=== PATIENT | female | born 1995 | race Caucasian/White ===

== ENCOUNTER 2023-05-25 23:24 | Emergency (ER) | payer MEDICAID ==
[2023-05-26 00:29] VITALS: TEMP 97.5
[2023-05-26] MEDS ORDERED: Sodium Chloride 0.9% 1000 ML 1,000 ML IV STA (00:30)
[2023-05-26] MEDS ORDERED: Sodium Chloride 0.9% 1000 ML 1,000 ML ONE (00:45)
[2023-05-26 00:47] LABS: Absolute Neutrophil Ct (ANC) 3.06 x10^3/uL (1.4-6.9); BASOPHIL % 0.6 % (0.0-0.4); Basophil (Absolute #) 0.04 x10^3/uL (0-0.4); Eosinophil % 2.9 % (0.00-5.0); Eosinophil (Absolute #) 0.19 x10^3/uL (0-0.5); Hematocrit 40.8 % (35-47); Hemoglobin 13.5 g/dL (12.0-16.0); IMMATURE GRAN # 0.02 x10^3u/L (0.00-0.03); IMMATURE GRAN % 0.3 % (0.00-0.4); Lymphocyte (Absolute #) 2.85 x10^3/uL (1.0-4.6); Lymphocytes % 43.4 % (24.0-44.0); Mean Cell Volume 94.2 fL (78-100); Mean Corpuscular Hemoglobin 31.2 pg (26-32); Mean Corpuscular Hgb Concent. 33.1 g/dL (32-36); Mean Platelet Volume 9.6 fL (7.5-11.0); Monocytes % 6.1 % (0.0-12.0); Neutrophil % 46.7 % (36.0-66.0); Platelet Count 242 x10^3/uL (150-450); Red Blood Count 4.33 x10^6/uL (4.1-5.4); Red Cell Distribution Width 12.8 % (11.5-14.0); White Blood Count 6.6 x10^3/uL (4.0-10.5)
[2023-05-26 01:08] LABS: Appearance Turbid (Clear); Bacteria Many /HPF (None Seen); Bilirubin Negative (Negative); Blood Negative (Negative); Epithelial Cells Many /HPF (None Seen); Glucose, Urine Negative (Negative); Hyaline Casts NONE SEEN /LPF (0-2); Ketones Trace (Negative); Leukocyte Esterase Trace (Negative); Nitrite Negative (Negative); Ph 5.5 (4.6-8.0); Protein,Urine Dip 30 (Negative); Specific Gravity >=1.030 (1.005-1.030)
[2023-05-26 01:09] LABS: HCG URINE TEST NEGATIVE (NEGATIVE)
[2023-05-26 01:09] LABS: ADD URINE CULTURE? YES (NO)
[2023-05-26 01:16] LABS: ALBUMIN 3.6 g/dL (3.5-5.0); ALKALINE PHOSPHATASE 65 U/L (38-126); ANION GAP 10.1 MEQ/L (5-15); BLOOD UREA NITROGEN 14 mg/dL (7-17); CHLORIDE 107 mmol/L (98-107); Calcium 8.5 mg/dL (8.4-10.2); Carbon Dioxide 26 mmol/L (22-30); Creatinine 1 0.67 mg/dL (0.52-1.04); EST GLOMERULAR FILTRATION RATE > 60.0 ML/MIN; Glucose 121 mg/dL (74-106); Potassium 3.7 mmol/L (3.5-5.1); SGOT/AST 22 U/L (14-36); SGPT/ALT 19 U/L (0-35); SODIUM 140 mmol/L (137-145); TROPONIN < 0.012 ng/mL (0.000-0.034); Total Protein 6.3 g/dL (6.3-8.2)
[2023-05-26] MEDS ORDERED: ROCEPHIN 1 Gm-D5w 50 ml Bag** 1 G/50 ML IVPB IV STA (01:16)
[2023-05-26] MEDS ORDERED: ROCEPHIN 1 Gm-D5w 50 ml Bag** 1 G/50 ML IVPB IV ONE (01:17)
--- NOTE | 2023-05-26 01:17 | ERPHSYRPT ---
- History of Present Illness Time Seen by Provider: 05/26/23 01:00 Source: patient Exam Limitations: no limitations Patient Subjective Stated Complaint: pt states that last night while she was laying in bed she started feeling very dizzy and nauseated without vomiting. diz ziness worsens when changing positions. reports vomited one time this morning. denies chino, cp, sob, difficulty breathing, change in appetite, oral intact, urinary or bowel elimination, LOC, or being exposed to heat for prolonged period of time. Triage Nursing Assessment: pt ambulated to room 5 independently with slow steady gait after standing on scales for weight acquisition. urine sample obtained for lab testing. pt is alert and oriented times three, resp even and unlabored, able to speak in complete sentences, able to move all extremities. no edema noted. bilat radial and pedal pulses palpable and regular. heart sounds normal and regular, lung sounds clear bilat anteriorally. pupils 3mm, equal, round, and reactive to light. all extremities with strength, color, sensation, and pulses within normal limits. Physician History: Patient is a 27-year-old female presents to our ED for evaluation of dizziness that started last night while in bed. Patient was somewhat nauseous. Dizziness worse when she moves her head. Symptoms are constant. Patient vomited once this morning. No associated chest pain or shortness of breath. No numbness tingling or weakness. No trauma. No fever. Symptoms are mild to moderate in intensity. No specific worsening or proving factors. Patient is otherwise healthy. She voices no other complaints or concerns at this time. Portions of this note were created with voice recognition technology. There may be grammatical, spelling, punctuation or sound alike errors Timing/Duration: yesterday Severity: moderate Modifying Factors: Improves With: nothing Associated Symptoms: denies symptoms Allergies/Adverse Reactions: ketorolac [From Toradol] Allergy (Intermediate, Verified 05/26/23 00:12) Nausea and Vomiting Hx Tetanus, Diphtheria Vaccination/Date Given: Yes Hx Influenza Vaccination/Date Given: No Hx Pneumococcal Vaccination/Date Given: No Immunizations Up to Date: Yes Travel Risk - International Travel Have you traveled outside of the country in past 3 weeks: No - Coronavirus Screening Are you exhibiting any of the following symptoms?: No Close contact with a COVID-19 positive Pt in past 14-21 Days: No - Vaccine Status Have you recieved a Covid-19 vaccination: No - Review of Systems Constitutional: No Symptoms, No Fever, No Chills Eyes: No Symptoms Ears, Nose, & Throat: No Symptoms Respiratory: No Symptoms, No Cough, No Dyspnea Cardiac: No Symptoms, No Chest Pain, No Edema, No Syncope Abdominal/Gastrointestinal: No Symptoms, No Abdominal Pain, No Nausea, No Vomiting, No Diarrhea Genitourinary Symptoms: No Symptoms, No Dysuria Musculoskeletal: No Symptoms, No Back Pain, No Neck Pain Skin: No Symptoms, No Rash Neurological: No Symptoms, No Dizziness, No Focal Weakness, No Sensory Changes Psychological: No Symptoms Endocrine: No Symptoms Hematologic/Lymphatic: No Symptoms Immunological/Allergic: No Symptoms All Other Systems: Reviewed and Negative - Past Medical History Pertinent Past Medical History: Yes Neurological History: No Pertinent History ENT History: No Pertinent History Cardiac History: Other Respiratory History: Asthma, Other Endocrine Medical History: No Pertinent History Musculoskeletal History: No Pertinent History GI Medical History: No Pertinent History History: No Pertinent History Psycho-Social History: No Pertinent History Female Reproductive Disorders: No Pertinent History Other Medical History: 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 elevated right ventricular systolic pressure. - Past Surgical History Past Surgical History: No Neuro Surgical History: No Pertinent History Cardiac: No Pertinent History Respiratory: No Pertinent History Gastrointestinal: No Pertinent History Genitourinary: No Pertinent History Musculoskeletal: No Pertinent History Female Surgical History: No Pertinent History - Social History Smoking Status: Current every day smoker How long have you smoked: 2016 Exposure to second hand smoke: No Drug Use: none Patient Lives Alone: No - Female History Hx Last Menstrual Period: 05/19/23 Hx Now: No - Nursing Vital Signs Nursing Vital Signs: Initial Vital Signs Temperature 97.5 F 05/26/23 00:14 Pulse Rate 93 H 05/26/23 00:14 Respiratory Rate 16 05/26/23 00:14 Blood Pressure 127/86 05/26/23 00:14 O2 Sat by Pulse Oximetry 99 05/26/23 00:14 Pain Scale Pain Intensity 0 - Physical Exam General Appearance: no apparent distress, alert Eye Exam: PERRL/EOMI, eyes nml inspection Ears, Nose, Throat Exam: normal ENT inspection, TMs normal, pharynx normal, moist mucous membranes Neck Exam: normal inspection, non-tender, supple, full range of motion Respiratory Exam: normal breath sounds, lungs clear, airway intact, No respiratory distress Cardiovascular Exam: regular rate/rhythm, normal heart sounds, normal peripheral pulses Gastrointestinal/Abdomen Exam: soft, normal bowel sounds, No tenderness, No mass Back Exam: normal inspection, normal range of motion, No CVA tenderness, No vertebral tenderness Extremity Exam: normal inspection, normal range of motion, pelvis stable Neurologic Exam: alert, oriented x 3, cooperative, normal mood/affect, nml cerebellar function, nml station & gait, sensation nml, No motor deficits Skin Exam: normal color, warm, dry, No rash Lymphatic Exam: No adenopathy SpO2 Interpretation: normal SpO2: 99 O2 Delivery: Room Air - Course Nursing assessment & vital signs reviewed: Yes EKG Interpreted by Me: RATE (81), Sinus Rhythm, NORMAL AXIS, NORMAL INTERVALS, NORMAL QRS - CT Exams Head CT Interpretation: Tele-radiologist Report (No acute intracranial event) Ordered Tests: Active Orders 24 hr Category Date Time Status AMA [Release AMA] OM.NOW Care 05/26/23 04:39 Ordered Director Advertising STAT Care 05/26/23 00:30 Active EKG-ER Only STAT Care 05/26/23 00:30 Active IV Insertion STAT Care 05/26/23 00:30 Active HEAD WITHOUT CONTRAST [CT] Stat Exams 05/26/23 00:31 Completed CBC W DIFF Stat Lab 05/26/23 00:45 Completed CMP Stat Lab 05/26/23 00:45 Completed CULTURE,URINE Stat Lab 05/26/23 00:10 Received HCG QUALITATIVE, URINE Stat Lab 05/26/23 00:45 Completed NT PRO BNPII Stat Lab 05/26/23 00:45 Completed TROPONIN Q4H Lab 05/26/23 00:45 Completed TROPONIN Q4H Lab 05/26/23 04:30 Ordered TROPONIN Q4H Lab 05/26/23 08:30 Ordered UA W/RFX UR CULTURE Stat Lab 05/26/23 00:10 Completed Medication Summary Discontinued Medications Generic Name Dose Route Start Last Admin Trade Name Freq PRN Reason Stop Dose Admin Sodium Chloride 1,000 mls @ 999 mls/hr 05/26/23 00:30 05/26/23 02:04 Sodium Chloride 0.9% 1000 Ml IV 05/26/23 01:30 Infused .Q1H1M STA Infusion Sodium Chloride Confirm 05/26/23 00:45 Sodium Chloride 0.9% 1000 Ml Administered 05/26/23 00:46 Dose 1,000 mls @ ud .ROUTE .STK-MED ONE Ceftriaxone Sodium/Dextrose 1 g in 50 mls @ 100 mls/hr 05/26/23 01:16 05/26/23 02:04 Rocephin 1 Gm-D5w 50 Ml Bag IV 05/26/23 01:45 Infused STAT STA Infusion Ceftriaxone Sodium/Dextrose Confirm 05/26/23 01:17 Rocephin 1 Gm-D5w 50 Ml Bag Administered 05/26/23 01:18 Dose 1 g in 50 mls @ ud IV .STK-MED ONE Sodium Chloride 500 mls @ 500 mls/hr 05/26/23 01:55 05/26/23 02:34 Sodium Chloride 0.9% 500 Ml IV 05/26/23 02:54 Infused .Q1H ONE Infusion Sodium Chloride Confirm 05/26/23 01:56 Sodium Chloride 0.9% 500 Ml Administered 05/26/23 01:57 Dose 500 mls @ ud IV .STK-MED ONE Lab/Rad Data: Laboratory Result Diagrams 05/26/23 00:45 05/26/23 00:45 Laboratory Results 05/26/23 05/26/23 05/26/23 Range/Units 00:45 00:45 00:45 WBC 6.6 (4.0-10.5) x10^3/uL RBC 4.33 (4.1-5.4) x10^6/uL Hgb 13.5 (12.0-16.0) g/dL Hct 40.8 (35-47) % MCV 94.2 (78-100) fL MCH 31.2 (26-32) pg MCHC 33.1 (32-36) g/dL RDW 12.8 (11.5-14.0) % Plt Count 242 (150-450) x10^3/uL MPV 9.6 (7.5-11.0) fL Gran % 46.7 (36.0-66.0) % Immature Gran % (Auto) 0.3 (0.00-0.4) % Nucleat RBC Rel Count 0.0 (0.00-0.1) % Eos # (Auto) 0.19 (0-0.5) x10^3/uL Immature Gran # (Auto) 0.02 (0.00-0.03) x10^3u/L Absolute Lymphs (auto) 2.85 (1.0-4.6) x10^3/uL Absolute Monos (auto) 0.40 (0.0-1.3) x10^3/uL Absolute Nucleated RBC 0.00 (0.00-0.01) x10^3u/L Lymphocytes % 43.4 (24.0-44.0) % Monocytes % 6.1 (0.0-12.0) % Eosinophils % 2.9 (0.00-5.0) % Basophils % 0.6 (0.0-0.4) % Absolute Granulocytes 3.06 (1.4-6.9) x10^3/uL Basophils # 0.04 (0-0.4) x10^3/uL Sodium 140 (137-145) mmol/L Potassium 3.7 (3.5-5.1) mmol/L Chloride 107 (98-107) mmol/L Carbon Dioxide 26 (22-30) mmol/L Anion Gap 10.1 (5-15) MEQ/L BUN 14 (7-17) mg/dL Creatinine 0.67 (0.52-1.04) mg/dL Estimated GFR > 60.0 ML/MIN Glucose 121 H (74-106) mg/dL Calcium 8.5 (8.4-10.2) mg/dL Total Bilirubin 0.30 (0.2-1.3) mg/dL AST 22 (14-36) U/L ALT 19 (0-35) U/L Alkaline Phosphatase 65 (38-126) U/L Troponin I < 0.012 (0.000-0.034) ng/mL NT-Pro-B Natriuret Pep < 20.0 (<300) pg/mL Serum Total Protein 6.3 (6.3-8.2) g/dL Albumin 3.6 (3.5-5.0) g/dL Urine Color (Yellow) Urine Appearance (Clear) Urine pH (4.6-8.0) Ur Specific [place] (1.005-1.030) Urine Protein (Negative) Urine Glucose (UA) (Negative) mg/dL Urine Ketones (Negative) Urine Blood (Negative) Urine Nitrite (Negative) Urine Bilirubin (Negative) Urine Urobilinogen (0.2) mg/dL Ur Leukocyte Esterase (Negative) U Hyaline Cast (Auto) (0-2) /LPF Urine Microscopic RBC (0-5) /HPF Urine Microscopic WBC (0-5) /HPF Ur Epithelial Cells (None Seen) /HPF Calcium Oxalate Crystal (None Seen) /HPF Urine Bacteria (None Seen) /HPF Urine Culture Reflexed (NO) Urine HCG, Qual (NEGATIVE) 05/26/23 05/26/23 Range/Units 00:45 00:10 WBC (4.0-10.5) x10^3/uL RBC (4.1-5.4) x10^6/uL Hgb (12.0-16.0) g/dL Hct (35-47) % MCV (78-100) fL MCH (26-32) pg MCHC (32-36) g/dL RDW (11.5-14.0) % Plt Count (150-450) x10^3/uL MPV (7.5-11.0) fL Gran % (36.0-66.0) % Immature Gran % (Auto) (0.00-0.4) % Nucleat RBC Rel Count (0.00-0.1) % Eos # (Auto) (0-0.5) x10^3/uL Immature Gran # (Auto) (0.00-0.03) x10^3u/L Absolute Lymphs (auto) (1.0-4.6) x10^3/uL Absolute Monos (auto) (0.0-1.3) x10^3/uL Absolute Nucleated RBC (0.00-0.01) x10^3u/L Lymphocytes % (24.0-44.0) % Monocytes % (0.0-12.0) % Eosinophils % (0.00-5.0) % Basophils % (0.0-0.4) % Absolute Granulocytes (1.4-6.9) x10^3/uL Basophils # (0-0.4) x10^3/uL Sodium (137-145) mmol/L Potassium (3.5-5.1) mmol/L Chloride (98-107) mmol/L Carbon Dioxide (22-30) mmol/L Anion Gap (5-15) MEQ/L BUN (7-17) mg/dL Creatinine (0.52-1.04) mg/dL Estimated GFR ML/MIN Glucose (74-106) mg/dL Calcium (8.4-10.2) mg/dL Total Bilirubin (0.2-1.3) mg/dL AST (14-36) U/L ALT (0-35) U/L Alkaline Phosphatase (38-126) U/L Troponin I (0.000-0.034) ng/mL NT-Pro-B Natriuret Pep (<300) pg/mL Serum Total Protein (6.3-8.2) g/dL Albumin (3.5-5.0) g/dL Urine Color Dark Yellow A (Yellow) Urine Appearance Turbid A (Clear) Urine pH 5.5 (4.6-8.0) Ur Specific [place] >=1.030 A (1.005-1.030) Urine Protein 30 (Negative) Urine Glucose (UA) Negative (Negative) mg/dL Urine Ketones Trace A (Negative) Urine Blood Negative (Negative) Urine Nitrite Negative (Negative) Urine Bilirubin Negative (Negative) Urine Urobilinogen 1.0 A (0.2) mg/dL Ur Leukocyte Esterase Trace A (Negative) U Hyaline Cast (Auto) NONE SEEN (0-2) /LPF Urine Microscopic RBC 11-20 A (0-5) /HPF Urine Microscopic WBC 11-20 A (0-5) /HPF Ur Epithelial Cells Many A (None Seen) /HPF Calcium Oxalate Crystal 6-10 A (None Seen) /HPF Urine Bacteria Many A (None Seen) /HPF Urine Culture Reflexed YES (NO) Urine HCG, Qual NEGATIVE (NEGATIVE) - Progress Progress: improved Progress Note: Patient is 27-year-old female presents to our ED with dizziness. Physical exam essentially unremarkable. CT head negative. Laboratory work-up essentially nonremarkable. Testing includes EKG, CT head, CBC, CMP, urinalysis, hCG, BNP, troponin. Urinalysis positive for urinary tract infection. Patient received normal saline x1.5 L. A dose of Rocephin administered for urinary tract infection. Telemetry neuro advised admission. Patient declined adamant because of home obligations. Patient left AMA. Patient is of sound mind. Patient is appropriate to make informed and independent medical decisions. Patient understands that leaving AGAINST MEDICAL ADVICE can result in delayed diagnosis, increased risk of morbidity, mortality, short and long-term disability including . In spite of these risks, patient has decided to leave AGAINST MEDICAL ADVICE. Patient understands that she may return to our ED at any point if she reconsiders. Patient agrees to follow-up with her primary care doctor within 48 hours for reevaluation. Patient voices no other complaints or concerns at this time. We will release patient AGAINST MEDICAL ADVICE per their request. Complexity of problem addressed is moderate. Complexity of data reviewed and analyzed is extensive. Test ordered. Test reviewed and analyzed. Consultation with teleneurologist completed for recommendation on plan of care. Risk complication and a risk of morbidity/mortality of patient management is moderate. A prescription for antibiotic for the patient's pharmacy to treat urinary tract infection. Patient will leave AMA. However patient agrees to follow-up with her primary care doctor within 48 hours for reevaluation. Time spent to discharge patient approximately 15 minutes. Vital stable. No social determinants of health presents PUSHER OPERATOR follow-up. Patient's mother at bedside. They voiced no other complaints or concerns at this time. Portions of this note were created with voice recognition technology. There may be grammatical, spelling, punctuation or sound alike errors 05/26/23 04:40 05/26/23 04:43 Counseled pt/family regarding: lab results, diagnosis, need for follow-up, rad results - Departure Departure Disposition: Home Clinical Impression: UTI (urinary tract infection), Dehydration, Dizziness Condition: Stable Critical Care Time: No Referrals: DOCTOR,NO FAMILY [Primary Care Provider] - Follow up/PCP as directed CHARLI WELDON MD [ACTIVE STAFF] - Follow up/PCP as directed Instructions: Urinary Tract Infection, Adult ED Additional Instructions: Discharge/Care Plan SUZYDONTA RAYMUNDO was seen on 05/26/23 in the Emergency Room. The patient was counseled regarding Diagnosis,Lab results, Imaging studies, need for follow up and when to return to the Emergency Room. Prescriptions given: Discharge Note I have spoken with the patient and/or caregivers. I have explained the patient's condition, diagnosis and treatment plan based on the information available to me at this time. I have answered the patient's and/or caregiver's questions and addressed any concerns. The patient and/or caregivers have as good understanding of the patient's diagnosis, condition and treatment plan as can be expected at this point. The vital signs have been stable. The patient's condition is stable and appropriate for discharge from the emergency department. The patient will pursue further outpatient evaluation with the primary care physician or other designated or consulting physician as outlined in the discharge instructions. The patient and/or caregivers are agreeable to this plan of care and follow-up instructions have been explained in detail. The patient and/or caregivers have received these instruction. The patient/and or caregivers are aware that any significant change in condition or worsening of symptoms should prompt an immediate return to this or the closest emergency department or call 911. Prescriptions: Nitrofurantoin Macro 100 mg [Macrobid 100MG Capsule] 100 mg PO BID 7 Days #14 cap
[2023-05-26] MEDS ORDERED: Sodium Chloride 0.9% 500 ML 500 ML IV ONE ×2 (01:55→01:56)
--- NOTE | 2023-05-26 02:18 | XRAY ---
CLINICAL HISTORY:dizziness COMPARISON:None. TECHNIQUE:Axial non-contrast CT scan of the brain was performed from the skull base to the high parietal region. Coronal and sagittal reconstructions were also obtained. FINDINGS: The visualized brain parenchyma shows normal appearance. Ernst-white matter differentiation is maintained. No midline shifts or deformity. No intracerebral or extra axial hematoma. Normal size and configuration of the cerebral ventricles. Normal CT appearance of the posterior fossa structures namely the cerebellar hemispheres, brainstem and cerebellar peduncles. The IACs are unremarkable. The cerebello-pontine angles are clear. The pituitary gland, the pineal gland, the optic chiasm is unremarkable. The osseous structures in the skull base are unremarkable. No definite calvarium fractures. The scanned paranasal sinuses are clear. IMPRESSION: 1. No acute intra cranial event is seen. 2. Unremarkable CT head. Electronically Signed by: Jung Zamora MD. (05/26/2023 01:16:46 CUSTODY OFFICER)
[2023-05-26 04:03] VITALS: BP 96/58; PULSE 79; RESP 21
[2023-05-26 04:20] VITALS: O2SAT 99
== END 2023-05-26 04:46 | disposition left against medical advice (07) ==
LOC: ED 23:24
DX: N39.0 Urinary tract infection, site not specified (principal); E86.0 Dehydration; R42 Dizziness and giddiness; R11.2 Nausea with vomiting, unspecified; Z28.310 Unvaccinated for COVID-19; Z72.0 Tobacco use
CPT/HCPCS: 36000; 36415; 70450; 80053; 81001; 81025; 83880; 84484; 85025; 87086; 93005; 93041; 99284; Q3014; J0696